=== PATIENT | male | born 1995 | race Hispanic/Latino ===

== ENCOUNTER 2018-10-22 14:02 | Emergency (ER) | payer SELFPAY ==
[2018-10-22 14:18] VITALS: TEMP 98.6; O2SAT 98
[2018-10-22] MEDS ORDERED: CHLORHEXIDINE GLUCONATE 4 % 15 ML UD TOP ONE (14:25)
[2018-10-22] MEDS ORDERED: SULFA/TRIMETH 800/160 (DS) TAB 1 EA TAB PO ONE (14:25)
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
[2018-10-22] MEDS ORDERED: NEOMYCIN-BACITRACIN-POLYMYXIN 0.9 GM UD TOP ONE (15:15)
[2018-10-22 15:27] VITALS: BP 134/76
== END 2018-10-22 15:26 | disposition home or self-care (01) ==
LOC: ER 14:02
DX: S61.412A Laceration without foreign body of left hand, initial encounter (principal); S63.502A Unspecified sprain of left wrist, initial encounter; S50.812A Abrasion of left forearm, initial encounter; Z87.891 Personal history of nicotine dependence; V29.9XXA Motorcycle rider (driver) (passenger) injured in unspecified traffic accident, initial encounter; Y92.410 Unspecified street and highway as the place of occurrence of the external cause